=== PATIENT | male | born 1995 | race Caucasian/White ===

== ENCOUNTER 2019-05-01 06:07 | Day surgery (SDC) | payer OTHER ==
[~2019-05-01] VITALS: Ht 175.3 cm; Wt 69.4 kg
[~2019-05-01 06:07] MED LIST: LACT1CAP29 PO; MULT-121 PO
[2019-05-01] MEDS ORDERED: ONDANSETRON PF 4 MG/2 ML VIAL. IV PRN (07:00)
[2019-05-01] MEDS ORDERED: MORPHINE SULFATE 2 MG/ML VIAL. IV PRN (07:00)
[2019-05-01] MEDS ORDERED: HYDROmorphone 2 MG/ML VIAL IV PRN (07:00)
[2019-05-01] MEDS ORDERED: PROCHLORPERAZINE 10 MG/2 ML VIAL. IV PRN (07:00)
[2019-05-01] MEDS ORDERED: fentaNYL PF VIAL 100 MCG/2 ML VIAL IV PRN ×2 (07:00)
[2019-05-01] MEDS ORDERED: IV RINGERS,LACTATED 1000ML 1,000 ML IV SCH (07:00)
[2019-05-01] MEDS ORDERED: BUPIVACAINE MPF 0.5% 30 ML VIAL. ONE ×2 (07:04→07:41)
[2019-05-01] MEDS ORDERED: EPINEPHrine VIAL 30 MG/30 ML VIAL ONE (07:04)
[2019-05-01] MEDS ORDERED: LIDOCAINE 1% 20 ML VIAL. ONE (07:04)
[2019-05-01] MEDS ORDERED: PROPOFOL 20 ML IV ONE ×2 (07:17→09:43)
[2019-05-01] MEDS ORDERED: MIDAZOLAM HCL/PF 2 MG/2 ML VIAL. ONE (07:17)
[2019-05-01] MEDS ORDERED: LIDOCAINE 2% PF 5 ML VIAL. ONE (07:17)
[2019-05-01] MEDS ORDERED: SEVOFLURANE 61 TO 120 MINUTES. IH ONE (07:17)
--- NOTE | 2019-05-01 07:37 | DISCH ---
DISCHARGE INSTRUCTIONS Condition on Discharge Condition on Discharge: Stable Activity After Discharge Activity Instructions for Disc: Other ROM activity, Other, see below Bathing Instructions: Shower-keep dressing dry Driving Instructions after Dis: Do not drive Weight Bearing Status after Di: As tolerated Diet after Discharge Diet after Discharge: Regular Wound Incision Care Wound/Incision Care: Ice to area for comfort, Keep wound/cast CDI, Change dressing Other wound/incision instructi: ok to change dressing after [address] after DC Call your doctor for: Concerns you may have Follow-Up Follow up with: Axel in 2 wks FELICIA ARECHIGA II, MD May 01, 2019 07:37
[2019-05-01] MEDS ORDERED: KETOROLAC 30 MG/ML VIAL. ONE (07:43)
[2019-05-01] MEDS ORDERED: ONDANSETRON PF 4 MG/2 ML VIAL. ONE (07:43)
[2019-05-01] MEDS ORDERED: DEXAMETHASONE SOD PHOS 4 MG/ML VIAL ONE (07:43)
[2019-05-01] MEDS ORDERED: MORPHINE SULFATE 10 MG/ML VIAL. ONE (09:37)
[2019-05-01] MEDS ORDERED: OXYC-325 PO (10:29)
[2019-05-01] MEDS ORDERED: DOCU-109 PO (10:30)
[2019-05-01] MEDS ORDERED: oxyCODONE/APAP 5/325 1 TAB TABLET PO ONE (10:30)
[2019-05-01] MEDS ORDERED: ONDA8TAB9 SL (10:31)
[2019-05-01 11:15] VITALS: BP 144/73
--- NOTE | 2019-05-01 12:49 | PDOC4 ---
Operative Note Operative Note Date of procedure: 05/01/2019 Surgeon: Jameson Flynn.: CARISSA Cohen Preoperative diagnosis: Right knee ACL tear Postoperative diagnosis: Same Procedure performed: Arthroscopic right knee ACL reconstruction with autograft hamstring supplemented with allograft Anesthesia: Gen. Findings: Near complete ACL tear, positive pivot shift on exam under anesthesia. Unremarkable cartilage surfaces throughout knee Intact PCL Medial and lateral menisci without pathology No loose bodies Tourniquet time less than 90 minutes Blood loss: 10 mL Components inserted: Lima and nephew Endobutton, Biomet tunneloc 10 mm Complications: None Reason for procedure: Patient is a very pleasant 23-year-old in the who has had symptomatic instability and pain associated with these episodes for several months. Please see my outpatient consult note for full details. We had initially attempted conservative management of his ACL injury, but the instab ility during cutting and pivoting was interfering with his desired recreational activities and service and therefore we discussed proceeding with ACL reconstruction including use of allograft. Disruption of procedure: Patient was greeted preoperative area by myself for the correct extremity was verified and marked. He was taken to the operative suite and his antibiotics were started as he was brought back. Once in the operative room, he was transferred gently supine to the operating room table and secured to bed with all pressure points padded and had successful induction of a general anesthetic. I then conducted my examination under anesthesia, he had a 2+ Serge with an endpoint and pivot shift that was positive. His knee was stable to varus and valgus at 0 and 30. A padded bump laterally at his hip and foot rest were secured the bed to maintain the knee in 90 passively. A nonsterile tourniquet was taped in place to his right upper thigh. We then proceeded to prep and drape right lower extremity are usual sterile fashion conductor standard preoperative timeout. I began the procedure by marking surface anatomy for my planned incisions. Extremity was then exsanguinated with an Esmarch and tourniquet insufflated to 250 mmHg. I then incised skin with a scalpel over his hamstring harvest site and dissected subcutaneous tissues tissue with Metzenbaums using electrocautery for hemostasis. I incised the sartorial fascia after palpating for the upper border of the hamstring tendons and then identified his hamstring tendons and used the Metzenbaum scissors to take these off the tibia, clamping them with 90 clamps as I went. I then released the overlying sartorial fascia and the hamstrings followed by blunt dissection until they had a good bounce. After this, I used a #2 ultra braid in a running whipstitch fashion at both ends followed by a closed tendon stripper to deliver the hamstrings. I took these to the back table and denuded them of the adherent muscle fibers and soft tissue. I then cut them to 22 cm in length. I then folded them and test them, they were only about 7 mm. Therefore I had my operative team month I allograft and I incised this with a scalpel in line with its fibers and using a string cheese technique a bundle of this and then sized my 2 hamstrings and this strip of peroneal's together and it was a 9- 1/2 proximally. Whipstitches in with #2 ultra braid were then fashion at both ends of all the grafts. These were secured on the Endobutton tensioning device. I then directed my attention to creating an anterolateral portal and incised skin with a scalpel and introduced a blunt arthroscopic trocar into the suprapatellar pouch followed by the camera. I conducted my diagnostic arthroscopy with above noted findings and upon entering the medial compartment used a spinal needle to localize an anteromedial portal and incised skin in accordance with this and dilated this well. I just used my probe and continued on with my diagnostic arthroscopy. After placing his leg in [id number] position to inspect the lateral compartment I redirected my attention to taking down the remnant of his ACL and some fat pad for visualization. After accomplishing this, I used my tipped guide to advance a Beath pin for my tibial tunnel followed by reaming over this and clearing the tunnel out with the shaver. With the knee in a hyperflexion position and held by an triage assistant, I us ed a 6 mm [id number] guide and advanced the Beath pin a little bit I then repositioned and the knee and inspected this point and was happy with this. I then repositioned the leg in hyperflexion and used my [id number] guide and advanced the Beath pin bicortically followed by my Endobutton reamer. I then remove these and measured for the tunnel. After this I reintroduced the Beath pin out through skin over his lateral distal thigh and reamed with my acorn reamer to appropriate depth. After this, I cleared the debris from the knee as well as the tunnel and reinspected the tunnel from the anteromedial portal and was happy with it. I then repositioned the camera in the anterolateral portal and used the Beath pin to shuttle a #2 ultra braid through the femoral tunnel and then out through the tibial tunnel. I then passed my ACL graft without complication, confirming good toggle on the lateral cortex that disappeared with maximal backward traction on the graft. I then repeatedly cycled the graft. I removed the camera prior to this. After this, I placed my nitinol wire in between the 6 transiting graft followed by my tibial fixation apparatus was placed up against bone and I secured the limbs to this and then tensioned and cycled it more. I then finished my tensioning and cycling and then impacted my tibial fixation device into position. He had a negative Serge with a solid endpoint. I removed the insertion apparatus for my tibial fixation device and cut the graft limbs to the level of bone after removing my nitinol wire. I then reintroduced the camera and removed all loose bony debris from his knee. I was happy with the graft position, there was no impingement in extension. I then remove the camera and all excess arthroscopic fluid. I cut the Endobutton suture over his lateral distal thigh. His fascia over his hamstring harvest site was closed with simple interrupted #2 Vicryl. I injected this area using my shaver sheath with local anesthetic mixture. Inverted interrupted 2-0 Vicryl was used to close the cutaneous tissue at this area followed by running 4-0 Monocryl in buried subcuticular fashion. 3-0 nylon in a simple interrupted fashion was used to close portals. Prior to wound closure, all counts correct 2. At the conclusion, he was placed into a soft bulky sterile dressing followed by a hinged knee brace in full range of motion. He was awakened from anesthesia, he tolerated surgery well. No complications. He was taken to the PACU in a stable and x-ray condition after being transferred to a supine to the recovery room cart. Postoperative plan is to allow weightbearing as tolerated. He will start physical therapy later this week. I'll see him back in clinic in 2 weeks, sooner should a problem arise JAMESON ARECHIGA II, MD May 01, 2019 12:49
== END 2019-05-01 12:10 | disposition home or self-care (01) ==
LOC: SURG 06:07
PROVIDERS: ATTEND Orthopaedic Surgery Sports Medicine
DX: S83.511A Sprain of anterior cruciate ligament of right knee, initial encounter (principal); X58.XXXA Exposure to other specified factors, initial encounter; Y93.89 Activity, other specified; Y92.89 Other specified places as the place of occurrence of the external cause; Y99.8 Other external cause status; Z72.89 Other problems related to lifestyle
CPT/HCPCS: 29888; A7015; C1713; C1763; J0171; J0690; J1100; J1885; J2001; J2250; J2270; J2405; J2704; J3490